=== PATIENT | female | born 1990 | race Caucasian/White ===

== ENCOUNTER 2020-11-02 11:09 | Emergency (ER) | payer OTHER ==
[~2020-11-02 11:09] MED LIST: COLACE 100MG C100 MG PO; IBUPROFEN600 MG PO; NORCO 5-325 TA1 EACH PO; TYLENOL 325MG325 MG PO
[2020-11-02 13:22] LABS: HEMOGLOBIN 13.2 gm/dl (12.3-15.3); RED BLOOD COUNT 4.36 M/UL (4.00-5.10); WHITE BLOOD COUNT 10.6 K/UL (4.5-11.0)
[2020-11-02 14:05] LABS: BUN/CREATININE RATIO 11 (0-10)
[2020-11-02] MEDS ORDERED: CYCLOBENZAPRINE10 MG PO (16:41)
== END 2020-11-02 17:25 | disposition home or self-care (01) ==
LOC: ER1 11:09
PROVIDERS: Physician Assistant Medical
DX: S39.012A Strain of muscle, fascia and tendon of lower back, initial encounter (principal); Z90.49 Acquired absence of other specified parts of digestive tract; G40.909 Epilepsy, unspecified, not intractable, without status epilepticus; Z79.899 Other long term (current) drug therapy; X50.9XXA Other and unspecified overexertion or strenuous movements or postures, initial encounter
CPT/HCPCS: 80053; 81001; 85025; 87086; 96372; 99283; J1885